=== PATIENT | female | born 2000 | race Caucasian/White ===

== ENCOUNTER 2021-04-13 10:43 | Emergency (ER) | payer MEDICAID ==
[~2021-04-13] VITALS: Ht 175.3 cm; Wt 114.0 kg
[2021-04-13] MEDS ORDERED: IBUPROFEN 400MG TABLET PO ONE (12:00)
[2021-04-13] MEDS ORDERED: ACETAMINOPHEN 325MG TABLET PO ONE (12:00)
[2021-04-13] MEDS ORDERED: NAPR-1176 MT (13:31)
[2021-04-13] MEDS ORDERED: ACET-2708 MT (13:31)
[2021-04-13 13:51] VITALS: BP 134/77
== END 2021-04-13 13:52 | disposition home or self-care (01) ==
LOC: ER 10:43
DX: M79.18 Myalgia, other site (principal); J02.9 Acute pharyngitis, unspecified; Z20.822 Contact with and (suspected) exposure to COVID-19; R05.8 Other specified cough
CPT/HCPCS: 81025; 87070; 87430; 93005; 99283; C9803; U0003; U0005